=== PATIENT | male | born 1995 ===

== ENCOUNTER 2018-07-23 13:30 | Emergency (ER) | payer OTHER ==
[2018-07-23 13:42] VITALS: PULSE 60
--- NOTE | 2018-07-23 15:28 | RAD ---
HISTORY: anterior chest pain COMPARISON: None available. TECHNIQUE: Chest PA and lateral FINDINGS: Examination limited by habitus. LUNGS: No focal consolidation. Please note that chest x-ray has limited sensitivity for the detection of pulmonary masses. PLEURA: No significant pleural effusion identified. No definite pneumothorax . CARDIOVASCULAR: The cardiomediastinal silhouette appears within normal limits of size. OSSEOUS STRUCTURES: No acute osseous abnormality identified. VISUALIZED UPPER ABDOMEN: Unremarkable. OTHER FINDINGS: None. IMPRESSION: No focal consolidation, significant pleural effusion, or definite pneumothorax identified.
--- NOTE | 2018-07-23 15:35 | C.PDOC ---
History Of Present Illness 23 year old male presents to the ED complaining of left sided chest pain that radiates to the right intemrittentl yfor the past 2 weeks. Pain is intermittent and worse when he is lifting boxes or under stress. Pain is not associated with diaphoresis, nausea, vomiting, or SOB. Reports he has been under a lot of stress recently because he is working more and doing heavy lifting at work. He does not have any chest pain during exam but he also complains of upper back pain, cough and nasal congestion that began last night. Denies any fever, n/v/d, or any other symptoms. Time Seen by Provider: 07/23/18 13:43 Chief Complaint (Nursing): Cough, Cold, Congestion History Per: Patient History/Exam Limitations: no limitations Onset/Duration Of Symptoms: Days Past Medical History Reviewed: Historical Data, Nursing Documentation, Vital Signs Vital Signs: Last Vital Signs Temp 98.8 F 07/23/18 13:40 Pulse 60 07/23/18 13:40 Resp 18 07/23/18 13:40 BP 118/72 07/23/18 13:40 Pulse Ox 99 07/23/18 13:40 - Medical History PMH: No Chronic Diseases Surgical History: No Surg Hx Family History: States: CAD (Father) - Social History Hx Alcohol Use: No Hx Substance Use: No Review Of Systems Constitutional: Negative for: Fever, Chills ENT: Positive for: Nose Congestion Cardiovascular: Positive for: Chest Pain Respiratory: Negative for: Shortness of Breath, Other (diaphoresis ) Gastrointestinal: Negative for: Nausea, Vomiting, Diarrhea Musculoskeletal: Positive for: Back Pain Neurological: Negative for: Weakness, Numbness Physical Exam - Physical Exam Appears: Non-toxic Skin: Warm, Dry Head: Normacephalic Eye(s): bilateral: Normal Inspection Neck: Normal ROM Chest: Symmetrical Cardiovascular: Rhythm Regular Respiratory: Normal Breath Sounds, No Rales, No Rhonchi, No Wheezing Gastrointestinal/Abdominal: Soft, No Tenderness Extremity: Normal ROM, No Pedal Edema Extremity: Bilateral: Atraumatic Neurological/Psych: Oriented x3, Normal Speech Gait: Steady ED Course And Treatment ECG: Viewed By Me ECG Rhythm: Sinus Bradycardia Interpretation Of ECG: Sinus bradycardia with sinus arrhythmia Rate From EC O2 Sat by Pulse Oximetry: 99 (RA) Pulse Ox Interpretation: Normal - Other Rad CXR X-Ray: Viewed By Me, Read By Radiologist Interpretation: Accession No. : [id number]. Patient Name / ID : LUCIAN BEAN / [id number]. Exam Date : 07/23/2018 14:49:50 ( Approved ). Study Comment : Sex / Age : M / 23Y. Creator : Montse Curtis MD. Dictator : Montse Curtis MD. Finish Machine Tender : Water Main Inspector : Montse Curtis MD. Approver2 : Report Date : 07/23/2018 15:23:36. My Comment : . HISTORY: anterior chest pain. COMPARISON: None available. TECHNIQUE: Chest PA and lateral. FINDINGS: Examination limited by habitus. LUNGS: No focal consolidation. Please note that chest x-ray has limited sensitivity for the detection of pulmonary masses. PLEURA: No significant pleural effusion identified. No definite pneumothorax . CARDIOVASCULAR: The cardiomediastinal silhouette appears within normal limits of size. OSSEOUS STRUCTURES: No acute osseous abnormality identified. VISUALIZED UPPER ABDOMEN: Unremarkable. OTHER FINDINGS: None. IMPRESSION: No focal consolidation, significant pleural effusion, or definite pneumothorax identified. Medical Decision Making Medical Decision Making: pt wiht intermittent cp; ekg with sinus ambrosio 58, sinus arrhythmia, neg cxr. discussed with pt that he should f/u as potpt in [facility], keep- diary of when he has pain and circumstances. Disposition Counseled Patient/Family Regarding: Studies Performed, Diagnosis, Need For Followup - Disposition Referrals: [facility] [Outside] Disposition: HOME/ ROUTINE Disposition Time: 16:01 Condition: GOOD Additional Instructions: Please call medical clinic on Wednesday to make soonest appointment. Keep diary when you have chest pain; such as what you were doing, how long it lasted, any other symptoms. Return to ER for any worse symptoms, Tylenol or Motrin for pain., Instructions: Chest Pain (DC) Forms: [facility] (Citizen Of [place]), General Discharge Instructions - Clinical Impression Clinical Impression: Chest pain, atypical - PA / FOREST [employer] PREVENTION MANAGER / Resident Statement MD/DO has reviewed & agrees with the documentation as recorded. - Scribe Statement The provider has reviewed the documentation as recorded by the Scribe Selena Elizabeth All medical record entries made by the Ireneibyamilex were at my direction and personally dictated by me. I have reviewed the chart and agree that the record accurately reflects my personal performance of the history, physical exam, medical decision making, and the department course for this patient. I have also personally directed, reviewed, and agree with the discharge instructions and disposition.
[2018-07-23 16:14] VITALS: BP 126/70; RESP 20; TEMP 98.2
[2018-07-23 16:59] VITALS: O2SAT 99
--- NOTE | 2018-07-25 21:26 | CARD ---
APPROVED REPORT Date of service: 07/23/2018 EKG Measurement Heart [id number] <Conclusion> Sinus bradycardia with sinus arrhythmia Otherwise normal ECG
== END 2018-07-23 16:14 | disposition home or self-care (01) ==
LOC: C.ER 13:30
DX: R07.89 Other chest pain (principal)